=== PATIENT | female | born 1965 | race Caucasian/White ===

== ENCOUNTER 2017-04-17 13:16 | Emergency (ER) | payer OTHER ==
[~2017-04-17] VITALS: Ht 172.7 cm; Wt 78.5 kg
== END 2017-04-17 19:37 | disposition home or self-care (01) ==
LOC: ER 13:16
DX: K52.89 Other specified noninfective gastroenteritis and colitis (principal)

== ENCOUNTER 2018-04-06 09:09 | Outpatient (CLI) | payer OTHER | END 2018-04-06 09:38 | disposition home or self-care (01) | LOC: SONOGRAMA 09:09 → MAMO-SONO 09:15 → SONOGRAMA 09:38 | DX: M65.831 Other synovitis and tenosynovitis, right forearm (principal); M65.832 Other synovitis and tenosynovitis, left forearm; G56.01 Carpal tunnel syndrome, right upper limb; G56.02 Carpal tunnel syndrome, left upper limb; M18.0 Bilateral primary osteoarthritis of first carpometacarpal joints; M19.041 Primary osteoarthritis, right hand; M19.042 Primary osteoarthritis, left hand; M17.0 Bilateral primary osteoarthritis of knee; M54.6 Pain in thoracic spine; M54.5 Low back pain ==

== ENCOUNTER → 2021-07-02 07:09 | Outpatient (CLI) | payer OTHER | END | disposition home or self-care (01) | LOC: NUCLEAR 07:09 | PROVIDERS: ATTEND Specialist | DX: G90.59 Complex regional pain syndrome I of other specified site (principal) | CPT/HCPCS: 78315; A9503 ==